=== PATIENT | female | born 1955 | race Caucasian/White ===

== ENCOUNTER 2022-07-20 20:35 | Emergency (ER) | payer MEDICARE, OTHER ==
[~2022-07-20] VITALS: Ht 149.9 cm; Wt 92.1 kg
[~2022-07-20 20:35] MED LIST: ALPR2TAB7; ATORVASTATIN TAB 20MG; BENA10TA74; FLUT16SP; INSU3INS6; LORA1TAB; METF-442; OMEP20CA15
--- NOTE | 2022-07-20 20:55 | NUR ---
Dr Muñoz at bedside. MSE in progress
[2022-07-20] MEDS ORDERED: IV NORMAL SALINE 1000 ML BAG IV ONE (21:15)
[2022-07-20 21:46] LABS: HEMATOCRIT 39.3 % (31.2-41.9); MEAN CORPUSCULAR HEMOGLOBIN 32.7 uug (24.7-32.8); MEAN CORPUSCULAR VOLUME 97.4 fL (75.5-95.3); PLATELET COUNT (AUTO) 370 K/uL (179-408)
[2022-07-20 22:01] LABS: CARBON DIOXIDE 25 mmol/L (21-32); CHLORIDE 101 mmol/L (98-107); CREATININE 0.7 mg/dL (0.6-1.3); GLUCOSE 274 mg/dL (74-106); POTASSIUM 4.7 mmol/L (3.5-5.1); UREA NITROGEN, BLOOD 13 mg/dL (7-18)
[2022-07-20 22:07] LABS: ALANINE AMINOTRANSFERASE 9 U/L (14-59); ALKALINE PHOSPHATASE 133 U/L (50-136); ASPARTATE AMINOTRANSFERASE 6 U/L (15-37); BILIRUBIN,TOTAL 0.3 mg/dL (0.2-1.0); TOTAL PROTEIN, SERUM 6.3 g/dL (6.4-8.2)
[2022-07-20 22:08] LABS: BILIRUBIN,DIRECT < 0.1 mg/dL (0.0-0.2)
[2022-07-20 23:36] LABS: *BILIRUBIN,URIN 1+ (NEGATIVE); *BLOOD, URINE NEGATIVE (NEGATIVE); *CLARITY,URINE CLEAR (CLEAR); *COLOR,URINE YELLOW (YELLOW); *KETONES,URINE 1+ (NEGATIVE); *UROBILINOGEN,URINE 0.2 E.U./dl (NORMAL); LEUKOCYTE ESTERASE ,URINE NEGATIVE (NEGATIVE); NITRITE, URINE NEGATIVE (NEGATIVE); PH,URINE 5.5 (5.0-8.0); UGLUCOSE NEGATIVE (NEGATIVE)
[2022-07-20 23:52] LABS: *AMPHETAMINE, URINE NEGATIVE (NEGATIVE); *CANNABINOID, URINE NEGATIVE (NEGATIVE); *COCCAINE, URINE NEGATIVE (NEGATIVE); *OPIATE, URINE NEGATIVE (NEGATIVE); *PHENCYCLIDINE SCREEN,URINE NEGATIVE (NEGATIVE)
[2022-07-20 23:57] LABS: RBC,URINE 0-3 /HPF (0-3)
[2022-07-20 23:58] LABS: BACTERIA,URINE NONE SEEN /HPF (NONE SEEN); SQUAMOUS EPITHELIAL CELL,UR MODERATE /HPF (NONE SEEN)
--- NOTE | 2022-07-21 00:01 | NUR ---
called [facility] ambulance for tranportation
--- NOTE | 2022-07-21 01:50 | NUR ---
[facility] ambulance unit 350 at bedside for transport
--- NOTE | 2022-07-21 01:51 | NUR ---
Called patient's caregiver Namrata [phone]. made aware that patient is discharged and ready to go home
--- NOTE | 2022-07-21 02:03 | NUR ---
Patient discharged to home in stable condition via [facility] ambulance. Written and verbal after care instructions given. Patient verbalizes understanding of instructions. Stressed follow up or return to ER for worsening s/s. Patient is a/ox4, NAD noted
[2022-07-21 02:04] VITALS: BP 138/70
== END 2022-07-21 02:04 | disposition home or self-care (01) ==
LOC: ER 20:35
DX: R05.9 Cough, unspecified (principal); R47.81 Slurred speech; J81.1 Chronic pulmonary edema; Z20.822 Contact with and (suspected) exposure to COVID-19; F17.210 Nicotine dependence, cigarettes, uncomplicated; I10 Essential (primary) hypertension; E11.9 Type 2 diabetes mellitus without complications; K21.9 Gastro-esophageal reflux disease without esophagitis; Z79.4 Long term (current) use of insulin; Z79.899 Other long term (current) drug therapy; Z79.84 Long term (current) use of oral hypoglycemic drugs; E66.9 Obesity, unspecified; Z68.41 Body mass index [BMI] 40.0-44.9, adult
CPT/HCPCS: 99285; 96360; 71045; 87426; 99406; 80076; 80048; 85025; 87400; 87086; 84484 ×2; 36415; 93005; 80307; 81001; J7040; A4663

== ENCOUNTER 2022-09-27 13:28 | Inpatient (IN) | payer MEDICARE, OTHER ==
[~2022-09-27] VITALS: Ht 152.4 cm; Wt 93.0 kg
[2022-09-27] MEDS ORDERED: ONDANSETRON 4 MG/2 ML VIAL IV ONE (13:30)
[2022-09-27] MEDS ORDERED: MORPHINE SULFATE 2 MG/1 ML DISP.SYRIN IV ONE (13:30)
[2022-09-27] MEDS ORDERED: VANCOMYCIN IV 1,000 MG in IV DEXTROSE 5% 250 ML IV ONE (13:30)
[2022-09-27] MEDS ORDERED: IV NORMAL SALINE 1000 ML BAG IV ONE ×2 (13:30→14:45)
[2022-09-27] MEDS ORDERED: PIPERACILLIN SODIUM/TAZOBACTAM 3.375 G in IV DEXTROSE 5% 50 ML IV ONE (13:30)
[2022-09-27] MEDS ORDERED: ACETAMINOPHEN ES 500 MG TABLET PO ONE (13:30)
--- NOTE | 2022-09-27 13:30 | NUR ---
MADONNA RA88 from home with c/o chronic pain r/t her bed sores.
--- NOTE | 2022-09-27 13:50 | NUR ---
Pt was triaged and is waiting in the ER hallway in the EMS gurney. There are no ER beds available. Pt is yelling out loud at ED staff and using profanity.
[2022-09-27 13:57] LABS: HEMATOCRIT 40.7 % (31.2-41.9); MEAN CORPUSCULAR VOLUME 97.1 fL (75.5-95.3); PLATELET COUNT (AUTO) 550 K/uL (179-408)
--- NOTE | 2022-09-27 14:05 | NUR ---
Pt to room 3 via EMS gurney.
[2022-09-27 14:16] LABS: ALANINE AMINOTRANSFERASE 10 U/L (14-59); ALKALINE PHOSPHATASE 135 U/L (50-136); ASPARTATE AMINOTRANSFERASE 5 U/L (15-37); BILIRUBIN,DIRECT 0.1 mg/dL (0.0-0.2); BILIRUBIN,TOTAL 0.2 mg/dL (0.2-1.0); CARBON DIOXIDE 21 mmol/L (21-32); CHLORIDE 98 mmol/L (98-107); CREATININE 0.7 mg/dL (0.6-1.3); POTASSIUM 4.8 mmol/L (3.5-5.1); TOTAL PROTEIN, SERUM 7.1 g/dL (6.4-8.2); UREA NITROGEN, BLOOD 12 mg/dL (7-18)
[2022-09-27 14:19] LABS: GLUCOSE 351 mg/dL (74-106)
[2022-09-27 15:17] LABS: *BILIRUBIN,URIN NEGATIVE (NEGATIVE); *BLOOD, URINE NEGATIVE (NEGATIVE); *CLARITY,URINE CLEAR (CLEAR); *COLOR,URINE YELLOW (YELLOW); *KETONES,URINE 1+ (NEGATIVE); *UROBILINOGEN,URINE 0.2 E.U./dl (NORMAL); LEUKOCYTE ESTERASE ,URINE NEGATIVE (NEGATIVE); NITRITE, URINE NEGATIVE (NEGATIVE); PH,URINE 5.5 (5.0-8.0)
[2022-09-27 15:33] LABS: UGLUCOSE 3+ (NEGATIVE)
[2022-09-27] MEDS ORDERED: MORPHINE SULFATE 2 MG/1 ML DISP.SYRIN ONE (15:35)
[2022-09-27] MEDS ORDERED: PIPERACILLIN/TAZOBACTAM/D5W 50 ML IV ONE (15:35)
[2022-09-27] MEDS ORDERED: VANCOMYCIN IV 200 ML ONE (15:35)
[2022-09-27] MEDS ORDERED: ONDANSETRON 4 MG/2 ML VIAL ONE (15:35)
[2022-09-27] MEDS ORDERED: ACETAMINOPHEN ES 500 MG TABLET ONE (15:35)
[2022-09-27 15:36] LABS: RBC,URINE 0-3 /HPF (0-3); WBC,URINE 0-3 /HPF (0-3)
[2022-09-27 15:37] LABS: BACTERIA,URINE FEW /HPF (NONE SEEN); SQUAMOUS EPITHELIAL CELL,UR FEW /HPF (NONE SEEN)
--- NOTE | 2022-09-27 19:15 | NUR ---
SHANELLE Parra RN
--- NOTE | 2022-09-27 20:39 | NUR ---
AURORAAR to Fidel BLANCO - m/s
--- NOTE | 2022-09-27 21:03 | NUR ---
Pt. admitted to M/S , under care of Dr. strickland Belongs List completed Fidel RN aware of patient's arrival
[2022-09-27] MEDS ORDERED: ACETAMINOPHEN 325 MG TABLET PO PRN (21:15)
[2022-09-27] MEDS ORDERED: ONDANSETRON 4 MG/2 ML VIAL IV PRN (21:15)
[2022-09-27] MEDS: BLOOD SUGAR DIAGNOSTIC 1 EACH STRIP VI SCH (21:15)
[2022-09-27] MEDS ORDERED: ZOLPIDEM 5 MG TABLET PO PRN (21:15)
[2022-09-27] MEDS ORDERED: DEXTROSE 50% 50 ML DISP.SYRIN IV PRN (21:15)
[2022-09-27] MEDS ORDERED: PIPERACILLIN SODIUM/TAZOBACTAM 3.375 G in IV DEXTROSE 5% 50 ML IV SCH (22:00)
[2022-09-27] MEDS: HYDROCODONE/APAP 5-325MG TABLET PO PRN (22:18)
[2022-09-28] MEDS ORDERED: VANCOMYCIN IV 1,500 MG in IV DEXTROSE 5% 500 ML IV ONE (02:00)
[2022-09-28] MEDS: PANTOPRAZOLE SODIUM 40 MG TABLET.DR PO SCH (06:07)
[2022-09-28] MEDS: HYDROCODONE/APAP 5-325MG TABLET PO PRN ×7 (06:08→23:43)
[2022-09-28 07:24] LABS: MEAN CORPUSCULAR HEMOGLOBIN 32.6 uug (24.7-32.8); MEAN CORPUSCULAR VOLUME 97.2 fL (75.5-95.3); PLATELET COUNT (AUTO) 399 K/uL (179-408)
[2022-09-28] MEDS: BLOOD SUGAR DIAGNOSTIC 1 EACH STRIP VI SCH ×4 (07:41→20:34)
[2022-09-28 07:45] LABS: THYROID STIMULATING HORMONE 1.914 mIU/mL (0.358-3.740)
[2022-09-28] MEDS: INSULIN REGULAR, HUMAN 300 UNIT/3 ML VIAL SQ PRN ×3 (07:56→17:47)
--- NOTE | 2022-09-28 07:58 | NUR ---
Both ovenight antibiotics not given due to pharmacy note regarding medication adjust in the morning. Report given to morning nursing to contact pharmcy regarding medication adjustment prior to administration.
[2022-09-28 08:00] VITALS: BP 109/97
[2022-09-28 08:16] LABS: BILIRUBIN,TOTAL 0.2 mg/dL (0.2-1.0); CREATININE 0.5 mg/dL (0.6-1.3); PHOSPHOROUS 3.2 mg/dL (2.5-4.9); POTASSIUM 4.5 mmol/L (3.5-5.1); TOTAL PROTEIN, SERUM 5.9 g/dL (6.4-8.2)
[2022-09-28 08:28] LABS: MAGNESIUM 1.2 mg/dL (1.8-2.4)
[2022-09-28] MEDS: VANCOMYCIN IV 1,000 MG in IV DEXTROSE 5% 250 ML IV SCH ×2 (09:45→23:46)
[2022-09-28] MEDS: IV NS 1000 ML 1,000 ML IV PRN (09:46)
[2022-09-28 10:00] VITALS: BP 109/47
[2022-09-28] MEDS ORDERED: PIPERACILLIN SODIUM/TAZOBACTAM 3.375 G in IV DEXTROSE 5% 50 ML IV SCH (11:00)
--- NOTE | 2022-09-28 11:07 | NUR ---
WOUND CARE CONSULT: PT PRESENTS WITH MOISTURE ASSOCIATED OPEN SKIN TO RT THIGH AND SEVERE RASH TO BREASTFOLDS, ABDOMINAL/GROIN FOLDS, PERINEUM AND BUTTOCKS WITH SOME AREAS OF OPEN SKIN, PRESENT ON ADMISSION. PT IS ANGRY AND IRRITABLE AT TIMES. PT STATES IS NOT ABLE TO SHOWER AT HOME AND IS ONLY ABLE TO BATHE USING WIPES. RECOMMENDATIONS MADE FOR SKIN PROTECTION AND WOUND CARE. DISCUSSED WITH NURSING STAFF AND WITH PT. MD IN AGREEMENT WITH PLAN OF CARE.
[2022-09-28] MEDS ORDERED: REMEDY ESSENTIAL ZINC PASTE 113 GM TOP PRN (11:15)
[2022-09-28 12:00] VITALS: BP 99/39
[2022-09-28] MEDS ORDERED: PANT40TA2 PO (13:06)
[2022-09-28] MEDS ORDERED: ESCI10TA PO ×2 (13:06→14:20)
[2022-09-28] MEDS ORDERED: BUME0.5T5 PO (13:06)
[2022-09-28] MEDS ORDERED: CLOP75TA15 PO (13:06)
[2022-09-28] MEDS: REMEDY ESSENTIAL ZINC PASTE 113 GM TOP SCH ×2 (13:13→20:20)
[2022-09-28] MEDS: CLOTRIMAZOLE/BETAMET DIPROP CREAM 15 GM TUBE TOP SCH ×2 (13:13→20:22)
[2022-09-28] MEDS ORDERED: GLIM2TAB31 PO (13:26)
[2022-09-28] MEDS ORDERED: OMEP40CA21 PO (13:26)
[2022-09-28] MEDS ORDERED: ASPI81TA31 PO (13:26)
[2022-09-28] MEDS ORDERED: METF-442 PO (13:26)
[2022-09-28] MEDS ORDERED: ALPR2TAB7 PO (13:26)
[2022-09-28] MEDS: MAGNESIUM SULFATE/D5W 100 ML IV SCH ×4 (13:32→17:35)
--- NOTE | 2022-09-28 13:53 | NUR ---
SW consult requested to assess living situation. Patient is a 66-year-old female who was admitted to the hospital for pressure ulcers. Patient is alert and oriented X4. Patient presents with anxious mood and congruent affect. Patient states her primary nurseryperson is her caregiver, Namrata Celeste ([phone]) who she lives with at [address] [place] [address] in a one-story house. Patient states she has a hospital bed, commode, walker, cane and wheelchair at home. Patient denies a history of substance abuse and there is no toxicology report. Patient states she has a history of depression and anxiety. Patient states she sees a psychiatrist once a month and takes medication. Patient denies suicidal or homicidal ideation. [facility] made an APS report Intake ID [id number] for suspicion of self-neglect, placed a copy in the patients chart, and informed charge nurse, [place]. Patient states her plan for discharge is to go home to [address] [place] [address].
[2022-09-28] MEDS: ENOXAPARIN SODIUM 40 MG/0.4 ML DISP.SYRIN SQ SCH (14:12)
[2022-09-28] MEDS ORDERED: ALPR2TAB2 PO (14:19)
[2022-09-28] MEDS ORDERED: ESCITALOPRAM OXALATE 10 MG TABLET PO SCH (15:45)
[2022-09-28] MEDS: GLIMEPIRIDE 2 MG TABLET PO SCH (17:29)
[2022-09-28] MEDS: CLOPIDOGREL 75 MG TABLET PO SCH (17:29)
[2022-09-28] MEDS: ASPIRIN 81 MG TAB.CHEW PO SCH (17:29)
[2022-09-28] MEDS: METFORMIN HCL 500 MG TABLET PO SCH (17:34)
[2022-09-28] MEDS: ALPRAZOLAM 0.5 MG TABLET PO PRN (17:34)
[2022-09-28] MEDS: ESCITALOPRAM OXALATE 10 MG TABLET PO SCH (17:35)
[2022-09-28] MEDS: PIPERACILLIN SODIUM/TAZOBACTAM 3.375 G in IV DEXTROSE 5% 50 ML IV SCH (18:45)
--- NOTE | 2022-09-28 19:54 | NUR ---
RECEIVED REPORT FROM KITTY KENT RN. PATIENT IS ALERT AND ORIENTED X4 AND SPEAKS MAORI. PATIENT TOLERATES PO & IV MEDICATIONS AND DIET WELL. PATIENT VOIDS ADEQUATELY. VITAL SIGNS STABLE. PATIENT COMPLAINED OF PAIN, HOWEVER ABLE TO MANAGED WITH NORCO. RN CLEANED AND APPLIED CREAMS ORDERED BY PROVIDER. PATIENT'S PERIPHERAL IV INFILTRATED. RN NOTIFIED PROVIDER. PROVIDER ALLOWED MIDLINE INSERTION. MIDLINE INSERTED ON THE LEFT UPPER ARM, PATENT AND FLUSHING. MAGNESIUM AND ANTIBIOTICS GIVEN ORDERED. HOURLY ROUNDING COMPLETED. NO ACUTE DISTRESS NOTED. NO SIGNS AND SYMPTOMS OF HYPOGLYCEMIA NOTED. PERWICK VOIDING SYSTEM INITIATED. ALL NEEDS MET AT THIS TIME. ENDORSED CARE TO BELLA SY, FOR CONTINUATION OF CARE.
[2022-09-28 20:00] VITALS: BP 100/67
[2022-09-28] MEDS: DOCUSATE SODIUM 100 MG CAPSULE PO SCH (20:21)
[2022-09-28] MEDS: INSULIN REGULAR, HUMAN 300 UNITS/3 ML VIAL SQ PRN (20:38)
[2022-09-29] MEDS: PIPERACILLIN SODIUM/TAZOBACTAM 3.375 G in IV DEXTROSE 5% 50 ML IV SCH ×2 (02:40→09:20)
[2022-09-29] MEDS: ALPRAZOLAM 0.5 MG TABLET PO PRN ×3 (03:42→22:24)
[2022-09-29 04:00] VITALS: BP 106/60
[2022-09-29] MEDS: PANTOPRAZOLE SODIUM 40 MG TABLET.DR PO SCH (06:19)
[2022-09-29] MEDS ORDERED: PANTOPRAZOLE SODIUM 40 MG TABLET.DR PO SCH (07:00)
[2022-09-29] MEDS: BLOOD SUGAR DIAGNOSTIC 1 EACH STRIP VI SCH ×4 (07:16→20:41)
[2022-09-29] MEDS: INSULIN REGULAR, HUMAN 300 UNIT/3 ML VIAL SQ PRN ×3 (07:18→17:09)
[2022-09-29 08:00] VITALS: BP 125/60
[2022-09-29] MEDS: CLOPIDOGREL 75 MG TABLET PO SCH (08:33)
[2022-09-29] MEDS: METFORMIN HCL 500 MG TABLET PO SCH ×2 (08:33→17:26)
[2022-09-29] MEDS: ASPIRIN 81 MG TAB.CHEW PO SCH (08:34)
[2022-09-29] MEDS: ESCITALOPRAM OXALATE 10 MG TABLET PO SCH (08:34)
[2022-09-29] MEDS: GLIMEPIRIDE 2 MG TABLET PO SCH ×2 (08:34→17:26)
[2022-09-29] MEDS: REMEDY ESSENTIAL ZINC PASTE 113 GM TOP SCH ×2 (08:35→20:34)
[2022-09-29] MEDS: CLOTRIMAZOLE/BETAMET DIPROP CREAM 15 GM TUBE TOP SCH ×2 (08:35→20:32)
[2022-09-29] MEDS: ENOXAPARIN SODIUM 40 MG/0.4 ML DISP.SYRIN SQ SCH (08:35)
[2022-09-29 11:08] VITALS: BP 118/64
[2022-09-29] MEDS: HYDROCODONE/APAP 5-325MG TABLET PO PRN ×3 (12:02→22:24)
[2022-09-29] MEDS: VANCOMYCIN IV 1,000 MG in IV DEXTROSE 5% 250 ML IV SCH (15:09)
[2022-09-29 15:42] VITALS: BP 110/58
[2022-09-29] MEDS ORDERED: PIPERACILLIN SODIUM/TAZOBACTAM 3.375 G in IV DEXTROSE 5% 50 ML IV SCH (16:00)
[2022-09-29 20:02] VITALS: BP 111/61
[2022-09-29] MEDS: ATORVASTATIN 20 MG TABLET PO SCH (20:31)
[2022-09-29] MEDS: DOCUSATE SODIUM 100 MG CAPSULE PO SCH (20:32)
[2022-09-30] MEDS: HYDROCODONE/APAP 5-325MG TABLET PO PRN ×2 (04:42→12:33)
[2022-09-30] MEDS: IV NS 1000 ML 1,000 ML IV PRN (04:43)
[2022-09-30] MEDS: VANCOMYCIN IV 1,000 MG in IV DEXTROSE 5% 250 ML IV SCH (05:15)
[2022-09-30 05:18] VITALS: BP 123/62
[2022-09-30] MEDS: PANTOPRAZOLE SODIUM 40 MG TABLET.DR PO SCH (06:15)
[2022-09-30] MEDS: BLOOD SUGAR DIAGNOSTIC 1 EACH STRIP VI SCH ×4 (07:02→21:44)
[2022-09-30 08:00] VITALS: BP 116/60
[2022-09-30] MEDS: ESCITALOPRAM OXALATE 10 MG TABLET PO SCH (08:39)
[2022-09-30] MEDS: ASPIRIN 81 MG TAB.CHEW PO SCH (08:39)
[2022-09-30] MEDS: GLIMEPIRIDE 2 MG TABLET PO SCH ×2 (08:39→17:40)
[2022-09-30] MEDS: METFORMIN HCL 500 MG TABLET PO SCH ×2 (08:40→17:40)
[2022-09-30] MEDS: ENOXAPARIN SODIUM 40 MG/0.4 ML DISP.SYRIN SQ SCH (08:41)
[2022-09-30] MEDS: INSULIN REGULAR, HUMAN 300 UNIT/3 ML VIAL SQ PRN ×3 (08:45→17:45)
[2022-09-30] MEDS: PROTEIN SUPPLEMENT (PROSTAT) 30 ML LIQUID GT SCH (08:46)
[2022-09-30] MEDS: CLOPIDOGREL 75 MG TABLET PO SCH (09:00)
[2022-09-30] MEDS: GLUCERNA SHAKE 237 ML CAN PO SCH (09:00)
[2022-09-30] MEDS: CLOTRIMAZOLE/BETAMET DIPROP CREAM 15 GM TUBE TOP SCH ×2 (09:00→21:16)
[2022-09-30] MEDS: REMEDY ESSENTIAL ZINC PASTE 113 GM TOP SCH ×2 (09:00→21:15)
[2022-09-30] MEDS: ALPRAZOLAM 0.5 MG TABLET PO PRN ×2 (12:33→21:13)
[2022-09-30 16:24] VITALS: BP 94/44
[2022-09-30 20:00] VITALS: BP 97/50
[2022-09-30] MEDS: VANCOMYCIN IV 1,250 MG in IV DEXTROSE 5% 250 ML IV SCH (21:13)
[2022-09-30] MEDS: ATORVASTATIN 20 MG TABLET PO SCH (21:14)
[2022-09-30] MEDS: DOCUSATE SODIUM 100 MG CAPSULE PO SCH (21:14)
[2022-09-30] MEDS: INSULIN REGULAR, HUMAN 300 UNITS/3 ML VIAL SQ PRN (21:45)
[2022-10-01] MEDS: HYDROCODONE/APAP 5-325MG TABLET PO PRN ×4 (00:52→17:11)
[2022-10-01] MEDS: IV NS 1000 ML 1,000 ML IV PRN (05:22)
[2022-10-01] MEDS: PANTOPRAZOLE SODIUM 40 MG TABLET.DR PO SCH (06:22)
[2022-10-01] MEDS: BLOOD SUGAR DIAGNOSTIC 1 EACH STRIP VI SCH ×3 (07:12→17:19)
[2022-10-01 08:00] VITALS: BP 116/47
[2022-10-01] MEDS: PROTEIN SUPPLEMENT (PROSTAT) 30 ML LIQUID GT SCH (08:00)
[2022-10-01 08:18] LABS: CREATININE 0.7 mg/dL (0.6-1.3); POTASSIUM 5.1 mmol/L (3.5-5.1)
[2022-10-01] MEDS: ENOXAPARIN SODIUM 40 MG/0.4 ML DISP.SYRIN SQ SCH (09:50)
[2022-10-01] MEDS: GLIMEPIRIDE 2 MG TABLET PO SCH ×3 (09:51→17:10)
[2022-10-01] MEDS: ESCITALOPRAM OXALATE 10 MG TABLET PO SCH (09:51)
[2022-10-01] MEDS: CLOTRIMAZOLE/BETAMET DIPROP CREAM 15 GM TUBE TOP SCH (09:52)
[2022-10-01] MEDS: REMEDY ESSENTIAL ZINC PASTE 113 GM TOP SCH (09:52)
[2022-10-01] MEDS: CLOPIDOGREL 75 MG TABLET PO SCH (09:52)
[2022-10-01] MEDS: METFORMIN HCL 500 MG TABLET PO SCH ×3 (09:52→17:46)
[2022-10-01] MEDS: GLUCERNA SHAKE 237 ML CAN PO SCH (09:52)
[2022-10-01] MEDS: ASPIRIN 81 MG TAB.CHEW PO SCH (09:52)
[2022-10-01] MEDS: ALPRAZOLAM 0.5 MG TABLET PO PRN ×2 (09:59→18:19)
[2022-10-01] MEDS: INSULIN REGULAR, HUMAN 300 UNIT/3 ML VIAL SQ PRN (12:12)
[2022-10-01] MEDS: VANCOMYCIN IV 1,250 MG in IV DEXTROSE 5% 250 ML IV SCH (12:26)
[2022-10-01] MEDS ORDERED: ATOR20TA PO (16:20)
[2022-10-01] MEDS ORDERED: CLOT15CR36 TOP (16:20)
[2022-10-01] MEDS ORDERED: CIPR-262 PO (16:25)
[2022-10-01 16:37] VITALS: BP 139/39
--- NOTE | 2022-10-01 16:53 | NUR ---
INSPECTOR SCREEN PRINTING WAS INFORMED BY CUSTOMER AGENTOVIDIO OF DISCHARGE. INSPECTOR SCREEN PRINTING CALLED CAREGIVER TWICE, UNSUCCESSFUL. UNABLE TO LEAVE MESSAGE, VOICEMAIL NOT SET UP. PUNEET Victor RN
--- NOTE | 2022-10-01 17:10 | NUR ---
PATIENT BG 65. 2 BOXES OF ORANGE JUICE ADMIN
--- NOTE | 2022-10-01 17:25 | NUR ---
PATIENT ATE DINNER. BG INCREASED 84.
--- NOTE | 2022-10-01 20:26 | NUR ---
@1900 received endorsement from day shift that patient is going to be discharged. eta for pepper picker is 1930. @2024 patient picked up by [facility] ambulance to be discharged to home in stable condition. all discharge paper work handed over to patient. discharge education provided. all belongings sent with patient.
--- NOTE | 2022-10-02 14:40 | NUR ---
LATE NOTE AIRCRAFT INSPECTION RECORD CLERK ACCIDENTALLY UNDO THE WRONG MEDS. NARCO, METFORMIN AND GLIMEPIRIDE WAS SCANNED. BG WAS 65, AIRCRAFT INSPECTION RECORD CLERK ATTEMPTED TO UNDO THE GLYCEMIC MEDS, ACCIDENTALLY UNDO NARCO ([id number]). PATIENT TOOK NARCO AND EXPRESSED EFFECTIVENESS. PUNEET Victor RN
== END 2022-10-01 20:30 | disposition home health service (06) | DRG 607 ==
LOC: ER 13:28 → MEDSURG3 20:00 → MED 09-28 00:22
PROVIDERS: ADMIT Nurse Practitioner Acute Care; ATTEND Nurse Practitioner Acute Care
PROC: 05H633Z Insertion of Infusion Device into Left Subclavian Vein, Percutaneous Approach (ICD-10-PCS; principal; 2022-09-28)
PROC: B547ZZA Ultrasonography of Left Subclavian Vein, Guidance (ICD-10-PCS; 2022-09-28)
PROC: 05H533Z Insertion of Infusion Device into Right Subclavian Vein, Percutaneous Approach (ICD-10-PCS; 2022-09-30)
PROC: B546ZZA Ultrasonography of Right Subclavian Vein, Guidance (ICD-10-PCS; 2022-09-30)
DX: B36.8 Other specified superficial mycoses (principal); D68.69 Other thrombophilia; E44.0 Moderate protein-calorie malnutrition; N39.0 Urinary tract infection, site not specified; Z68.41 Body mass index [BMI] 40.0-44.9, adult; E87.1 Hypo-osmolality and hyponatremia; L08.9 Local infection of the skin and subcutaneous tissue, unspecified; E11.65 Type 2 diabetes mellitus with hyperglycemia; E66.01 Morbid (severe) obesity due to excess calories; E78.5 Hyperlipidemia, unspecified; E83.42 Hypomagnesemia; E88.09 Other disorders of plasma-protein metabolism, not elsewhere classified; F17.210 Nicotine dependence, cigarettes, uncomplicated; Z88.2 Allergy status to sulfonamides; M19.90 Unspecified osteoarthritis, unspecified site; Z87.440 Personal history of urinary (tract) infections; L98.9 Disorder of the skin and subcutaneous tissue, unspecified; Z20.822 Contact with and (suspected) exposure to COVID-19; B95.2 Enterococcus as the cause of diseases classified elsewhere; Z79.84 Long term (current) use of oral hypoglycemic drugs; I10 Essential (primary) hypertension
CPT/HCPCS: 36415; 71045; 83605; 83735; 84100; 84443; 84484; 85025; 85730; 87040; 93005; A4663; A6209; A9150; G0378; J1650; J1815; J2270; J2405; J2543; J3370; J3475; J7040; J7050; J7060

== ENCOUNTER 2025-06-16 12:50 | Inpatient (IN) | payer MEDICARE, MEDICAID ==
[~2025-06-16] VITALS: Ht 152.4 cm; Wt 106.1 kg
[~2025-06-16 12:50] MED LIST changes: +ALPR2TAB2 PO; -ALPR2TAB7; +ALPR2TAB7 PO; +ASPI81TA31 PO; +ATOR20TA PO; -ATORVASTATIN TAB 20MG; -BENA10TA74; +CIPR-262 PO; +CLOP75TA15 PO; +CLOT15CR36 TOP; +ESCI10TA PO; -FLUT16SP; +GLIM2TAB31 PO; -INSU3INS6; -LORA1TAB; -METF-442; +METF-442 PO; -OMEP20CA15; +OMEP40CA21 PO
[2025-06-16 13:25] LABS: PLATELET COUNT (AUTO) 392 K/uL (179-408); RED BLOOD CELL COUNT(AUTO) 4.61 MIL/uL (3.63-4.92); RED CELL DISTRIBUTION WIDTH 15.4 % (12.3-17.7); WHITE BLOOD COUNT (AUTO) 12.4 K/uL (3.8-11.8)
[2025-06-16 13:41] LABS: ASPARTATE AMINOTRANSFERASE 12 U/L (15-37); CREATININE 0.5 mg/dL (0.6-1.3); SODIUM SERUM 140 mmol/L (136-145); TOTAL PROTEIN, SERUM 6.7 g/dL (6.4-8.2); UREA NITROGEN, BLOOD 22 mg/dL (7-18)
[2025-06-16] MEDS ORDERED: ASPIRIN 81 MG TAB.CHEW ONE (13:50)
[2025-06-16] MEDS: ASPIRIN 81 MG TAB.CHEW PO ONE (13:52)
[2025-06-16 14:00] VITALS: BP 100/57
[2025-06-16] MEDS ORDERED: ENOXAPARIN SODIUM 100 MG/ML DISP.SYRIN SQ ONE (14:29)
[2025-06-16] MEDS: ENOXAPARIN SODIUM 100 MG/ML DISP.SYRIN SQ ONE (14:39)
[2025-06-16] MEDS ORDERED: METF-494 PO (15:30)
[2025-06-16] MEDS ORDERED: ACET-2030 PO (15:30)
[2025-06-16] MEDS ORDERED: PREG75CA PO (15:30)
[2025-06-16] MEDS ORDERED: BISA10SU61 RC (15:30)
[2025-06-16] MEDS ORDERED: LACT10SO58 PO (15:30)
[2025-06-16] MEDS ORDERED: BUDE0.5A4 IH (15:30)
[2025-06-16] MEDS ORDERED: ASCO500C18 PO (15:30)
[2025-06-16] MEDS ORDERED: NALO4SPR BNOSTRILS (15:30)
[2025-06-16] MEDS ORDERED: METH-807 PO (15:30)
[2025-06-16] MEDS ORDERED: HYDR-3976 PO (15:30)
[2025-06-16] MEDS ORDERED: INSU100V7 SQ (15:30)
[2025-06-16] MEDS ORDERED: NICO-780 TD (15:30)
[2025-06-16] MEDS ORDERED: SENN8.6T19 PO (15:30)
[2025-06-16] MEDS ORDERED: NA P133E8 RC (15:30)
[2025-06-16] MEDS ORDERED: ATOR40TA PO (15:30)
[2025-06-16] MEDS ORDERED: MAGN400O6 PO (15:30)
[2025-06-16] MEDS ORDERED: ZINC220T4 PO (15:30)
[2025-06-16] MEDS ORDERED: GLUC1KIT IJ (15:30)
[2025-06-16] MEDS ORDERED: HYDR-3972 PO (15:30)
[2025-06-16] MEDS ORDERED: POLY250017 PO (15:30)
[2025-06-16] MEDS ORDERED: OMEP20CA15 PO (15:30)
[2025-06-16] MEDS ORDERED: DAPA5TAB PO (15:30)
[2025-06-16] MEDS ORDERED: MULT-225 PO (15:30)
[2025-06-16] MEDS ORDERED: ONDANSETRON 4 MG/2 ML VIAL IV PRN (16:00)
[2025-06-16] MEDS ORDERED: DEXTROSE 50% 50 ML DISP.SYRIN IV PRN (16:00)
[2025-06-16 16:33] LABS: *BILIRUBIN,URIN NEGATIVE (NEGATIVE); *COLOR,URINE YELLOW (YELLOW); *KETONES,URINE 1+ (NEGATIVE); *PROTEIN,URINE 1+ (NEGATIVE); *UROBILINOGEN,URINE 0.2 E.U./dl (NORMAL); LEUKOCYTE ESTERASE ,URINE 1+ (NEGATIVE); NITRITE, URINE POSITIVE (NEGATIVE); UGLUCOSE 3+ (NEGATIVE)
[2025-06-16 16:34] LABS: *BLOOD, URINE TRACE (NEGATIVE)
[2025-06-16 16:35] LABS: *CLARITY,URINE HAZY (CLEAR)
[2025-06-16 16:41] VITALS: BP 96/56; TEMP 98.1; O2SAT 97
[2025-06-16 16:41] LABS: SQUAMOUS EPITHELIAL CELL,UR MODERATE /HPF (NONE SEEN)
[2025-06-16 16:42] LABS: YEAST,URINE MANY /HPF (NONE SEEN)
[2025-06-16] MEDS ORDERED: IPRA3AMP23 IH (16:48)
[2025-06-16] MEDS: DOSING PER PHARMACY-ENOXAPARIN XX SCH (17:00)
[2025-06-16] MEDS ORDERED: Medication Not On Formulary EA (Pregabalin (Lyrica) 75 MG) PO SCH (17:00)
[2025-06-16] MEDS: BLOOD SUGAR DIAGNOSTIC 1 EACH STRIP VI SCH (17:11)
[2025-06-16] MEDS: DOCUSATE SODIUM 100 MG CAPSULE PO SCH (17:44)
[2025-06-16] MEDS: PREGABALIN 25 MG CAPSULE PO SCH (17:44)
[2025-06-16] MEDS: MORPHINE SULFATE 2 MG/1 ML DISP.SYRIN IVP PRN (17:54)
[2025-06-16 19:30] VITALS: BP 89/53; TEMP 98.3; O2SAT 100
[2025-06-16] MEDS: ATORVASTATIN 40 MG TABLET PO SCH (20:36)
[2025-06-16] MEDS: ENOXAPARIN SODIUM 100 MG/ML DISP.SYRIN SQ SCH (20:37)
[2025-06-16] MEDS: INSULIN REGULAR, HUMAN 1000 UNIT/10 ML VIAL SQ PRN (20:39)
[2025-06-16] MEDS: IV NS 1000 ML 1,000 ML IV ONE ×2 (20:40→21:00)
[2025-06-16] MEDS ORDERED: CLOTRIMAZOLE/BETAMET DIPROP CREAM 15 GM TUBE TOP SCH (21:00)
[2025-06-16] MEDS ORDERED: CEFTRIAXONE /D5W 50ML IVPB **ER PYXIS IV ONE (21:22)
[2025-06-16] MEDS: ALPRAZOLAM 0.25 MG TABLET PO PRN (21:57)
[2025-06-16 23:28] VITALS: BP 93/45; TEMP 97.6; O2SAT 96
[2025-06-16] MEDS: IV NS 1000 ML 1,000 ML IV SCH (23:41)
[2025-06-17 05:30] VITALS: BP 92/47; TEMP 98; O2SAT 100
[2025-06-17] MEDS ORDERED: ALPRAZOLAM 0.5 MG TABLET PO PRN (06:15)
[2025-06-17] MEDS: PANTOPRAZOLE SODIUM 40 MG TABLET.DR PO SCH (06:19)
[2025-06-17 07:07] LABS: PLATELET COUNT (AUTO) 343 K/uL (179-408); RED BLOOD CELL COUNT(AUTO) 4.19 MIL/uL (3.63-4.92); RED CELL DISTRIBUTION WIDTH 15.5 % (12.3-17.7); WHITE BLOOD COUNT (AUTO) 8.8 K/uL (3.8-11.8)
[2025-06-17 07:34] LABS: ASPARTATE AMINOTRANSFERASE 13 U/L (15-37); CREATININE 0.4 mg/dL (0.6-1.3); SODIUM SERUM 142 mmol/L (136-145); TOTAL PROTEIN, SERUM 5.9 g/dL (6.4-8.2); UREA NITROGEN, BLOOD 19 mg/dL (7-18)
[2025-06-17 07:36] VITALS: BP 96/65; TEMP 98.2; O2SAT 96
[2025-06-17] MEDS: ASPIRIN EC 81 MG TABLET.DR PO SCH (08:21)
[2025-06-17] MEDS: MIRALAX 17 GM POWD.PACK PO SCH (08:23)
[2025-06-17] MEDS: CLOPIDOGREL 75 MG TABLET PO SCH (08:23)
[2025-06-17] MEDS: NICOTINE 21 MG/24HR PATCH TD SCH (08:23)
[2025-06-17] MEDS: ESCITALOPRAM OXALATE 10 MG TABLET PO SCH (08:24)
[2025-06-17] MEDS ORDERED: IPRATROPIUM BROMIDE 0.5 MG/2.5 ML NEBU NEB PRN (09:00)
[2025-06-17] MEDS ORDERED: ALBUTEROL SULFATE 2.5 MG/3 ML NEBU NEB PRN (09:00)
[2025-06-17] MEDS ORDERED: ASPIRIN 81 MG TAB.CHEW PO SCH ×2 (09:00)
[2025-06-17] MEDS: GUAIFENESIN/DEXTROMETHORPHAN 5 ML UDC PO PRN (10:33)
[2025-06-17] MEDS: INSULIN REGULAR, HUMAN 1000 UNIT/10 ML VIAL SQ PRN (11:33)
[2025-06-17 11:37] VITALS: BP 90/43; TEMP 99.1; O2SAT 97
[2025-06-17] MEDS ORDERED: REMEDY ESSENTIAL ZINC PASTE 113 GM TOP PRN (12:45)
[2025-06-17 14:28] VITALS: O2SAT 97
[2025-06-17] MEDS: ALPRAZOLAM 0.5 MG TABLET PO PRN (15:24)
[2025-06-17] MEDS: METHOCARBAMOL 750 MG TABLET PO PRN (15:25)
[2025-06-17 16:00] VITALS: BP 93/45; TEMP 98.8; O2SAT 97
[2025-06-17] MEDS: METFORMIN HCL 500 MG TABLET PO SCH (17:13)
[2025-06-17 19:48] VITALS: BP 96/48; TEMP 99.5; O2SAT 97
[2025-06-18] VITALS (8 sets, daily range): BP systolic 86–102; BP diastolic 37–68; TEMP 97.8–99.3; O2SAT 97–100
[2025-06-18 07:26] LABS: PLATELET COUNT (AUTO) 257 K/uL (179-408); RED BLOOD CELL COUNT(AUTO) 3.69 MIL/uL (3.63-4.92); RED CELL DISTRIBUTION WIDTH 15.5 % (12.3-17.7); WHITE BLOOD COUNT (AUTO) 7.1 K/uL (3.8-11.8)
[2025-06-18 07:32] LABS: CREATININE 0.3 mg/dL (0.6-1.3); SODIUM SERUM 139 mmol/L (136-145); UREA NITROGEN, BLOOD 11 mg/dL (7-18)
[2025-06-18] MEDS: MIDODRINE HCL 5 MG TABLET PO STA (09:39)
[2025-06-18] MEDS: METOPROLOL TARTRATE 50 MG TABLET PO STA (09:41)
[2025-06-19] VITALS (8 sets, daily range): BP systolic 92–120; BP diastolic 45–61; TEMP 98–98.8; O2SAT 96–100
[2025-06-19 07:10] LABS: PLATELET COUNT (AUTO) 226 K/uL (179-408); RED BLOOD CELL COUNT(AUTO) 3.75 MIL/uL (3.63-4.92); RED CELL DISTRIBUTION WIDTH 15.2 % (12.3-17.7); WHITE BLOOD COUNT (AUTO) 7.0 K/uL (3.8-11.8)
[2025-06-19 07:59] LABS: ERYTHROCYTE SEDIMENTATION RATE 36 MM/HR (0-20)
[2025-06-19 08:28] LABS: HIV-1/2 ANTIBODY NON REACTIVE (NONREACTIVE)
[2025-06-19] MEDS: ENOXAPARIN SODIUM 40 MG/0.4 ML DISP.SYRIN SQ SCH (08:52)
[2025-06-19] MEDS: MIDODRINE HCL 5 MG TABLET PO SCH (08:53)
[2025-06-19 09:01] LABS: SODIUM SERUM 139 mmol/L (136-145)
[2025-06-19 09:02] LABS: CREATININE 0.3 mg/dL (0.6-1.3); UREA NITROGEN, BLOOD 10 mg/dL (7-18)
[2025-06-20 04:00] VITALS: BP 104/53; TEMP 99.8; O2SAT 95
[2025-06-20 06:41] LABS: PLATELET COUNT (AUTO) 290 K/uL (179-408); RED BLOOD CELL COUNT(AUTO) 4.00 MIL/uL (3.63-4.92); RED CELL DISTRIBUTION WIDTH 14.7 % (12.3-17.7); WHITE BLOOD COUNT (AUTO) 7.8 K/uL (3.8-11.8)
[2025-06-20 06:58] LABS: CREATININE 0.3 mg/dL (0.6-1.3); SODIUM SERUM 138 mmol/L (136-145); UREA NITROGEN, BLOOD 7 mg/dL (7-18)
[2025-06-20] MEDS ORDERED: IPRA0.2S6 NEB (09:53)
[2025-06-20] MEDS ORDERED: ALBU2.5V7 NEB (09:53)
[2025-06-20] MEDS: ACETAMINOPHEN 325 MG TABLET PO PRN (12:03)
[2025-06-20 12:04] VITALS: BP 112/52; TEMP 99.8; O2SAT 96
[2025-06-20 13:20] VITALS: BP 110/50; TEMP 98.8; O2SAT 96
== END 2025-06-20 14:15 | DRG 871 ==
LOC: ER 12:50 → TELE3 16:06 → MEDSURG3 06-19 08:53
PROVIDERS: ADMIT Internal Medicine; ATTEND Internal Medicine
PROC: 05HF33Z Insertion of Infusion Device into Left Cephalic Vein, Percutaneous Approach (ICD-10-PCS; principal; 2025-06-16)
DX: A41.9 Sepsis, unspecified organism (principal); I21.A1 Myocardial infarction type 2; J69.0 Pneumonitis due to inhalation of food and vomit; N39.0 Urinary tract infection, site not specified; E11.52 Type 2 diabetes mellitus with diabetic peripheral angiopathy with gangrene; Z68.42 Body mass index [BMI] 45.0-49.9, adult; E44.1 Mild protein-calorie malnutrition; I95.9 Hypotension, unspecified; E66.01 Morbid (severe) obesity due to excess calories; Z79.02 Long term (current) use of antithrombotics/antiplatelets; B96.20 Unspecified Escherichia coli [E. coli] as the cause of diseases classified elsewhere; Z74.01 Bed confinement status; T17.998A Other foreign object in respiratory tract, part unspecified causing other injury, initial encounter; W44.8XXA Other foreign body entering into or through a natural orifice, initial encounter; Y92.239 Unspecified place in hospital as the place of occurrence of the external cause; F17.210 Nicotine dependence, cigarettes, uncomplicated; E78.5 Hyperlipidemia, unspecified; R65.20 Severe sepsis without septic shock; M85.872 Other specified disorders of bone density and structure, left ankle and foot; I25.10 Atherosclerotic heart disease of native coronary artery without angina pectoris; J44.9 Chronic obstructive pulmonary disease, unspecified; I10 Essential (primary) hypertension; E11.42 Type 2 diabetes mellitus with diabetic polyneuropathy; E88.09 Other disorders of plasma-protein metabolism, not elsewhere classified; K80.20 Calculus of gallbladder without cholecystitis without obstruction; Z79.899 Other long term (current) drug therapy; Z88.3 Allergy status to other anti-infective agents; Z88.2 Allergy status to sulfonamides; Z98.62 Peripheral vascular angioplasty status; M20.42 Other hammer toe(s) (acquired), left foot; M20.41 Other hammer toe(s) (acquired), right foot; Z79.82 Long term (current) use of aspirin; Z79.84 Long term (current) use of oral hypoglycemic drugs
CPT/HCPCS: 36415; 71045; 71250; 73630; 83605; 83690; 84100; 84484; 85025; 85651; 85730; 86803; 87040; 87077; 87086; 87806; 93005; 93307; 94760; A4606; A4663; G0378; J0696; J1650; J2270; J7040